=== PATIENT | male | born 1960 | race Caucasian/White ===

== ENCOUNTER 2022-04-17 12:26 | Emergency (ER) | payer OTHER ==
[2022-04-17 12:37] VITALS: BP 118/83; PULSE 87; RESP 20; TEMP 98.5; BMI 27.4
[2022-04-17] MEDS ORDERED: BACITRACIN 15 GM TUBE TOPICAL OINTMENT ONE (13:35)
[2022-04-17] MEDS ORDERED: MUPIROCIN 2% TOPICAL OINTMENT 22 GM TUBE TP SCH (13:45)
== END 2022-04-17 14:13 | disposition home or self-care (01) ==
LOC: JERFT 12:26
DX: S61.002A Unspecified open wound of left thumb without damage to nail, initial encounter (principal); W26.8XXA Contact with other sharp object(s), not elsewhere classified, initial encounter
CPT/HCPCS: 99283-25